=== PATIENT | female | born 1995 | race Caucasian/White ===

== ENCOUNTER 2021-02-19 14:02 | Emergency (ER) | payer OTHER, SELFPAY ==
--- NOTE | ~2021-02-19 | US_ITS ---
EXAMINATION: US PELVIS AND TRANSVAGINAL CLINICAL INFORMATION: Pressure, pain, history of cysts COMPARISON: None TECHNIQUE: Sonographic imaging of the pelvis was performed using transabdominal and transvaginal transducers. FINDINGS: The uterus has normal size and echotexture. No evidence of uterine leiomyoma. The endometrium is 0.3 cm AP. The cervix is normal, 3.3 cm in length. If excluding the cervix from measurement, the anteflexed uterus is 5 cm long, 3.6 cm AP and 5.5 cm transverse. The right ovary is 6.2 x 4.3 x 4.9 cm. A 2.9 x 4.5 x 4.9 cm hemorrhagic cyst is present within the ovary. Color Doppler images show presence of arterial and venous flow within the ovary. The left ovary is 4.3 x 2.2 x 2.1 cm. Normal-sized follicles. No left-sided adnexal mass. [id number] amount of free fluid in the pelvis contains internal echoes. US/US pelvic and transvaginal IMPRESSION: The constellation of findings suggest recent rupture of a right ovarian cyst. [id number] amount of fluid/blood is present in the cul-de-sac. 4.9 cm hemorrhagic cyst is present within the right ovary. No ovarian torsion. Follow-up is typically not needed/recommended for hemorrhagic cysts of <5 cm size (if asymptomatic).
[2021-02-19 14:07] VITALS: BP 113/59; PULSE 71; RESP 17; TEMP 36.4; O2SAT 99; BMI 23.0
--- NOTE | 2021-02-19 14:39 | ED_ITS ---
HPI - Female Genitourinary General Chief complaint: General Medical Stated complaint: General Medical Time Seen by Provider: 02/19/21 14:30 Source: patient Mode of arrival: ambulatory Limitations: no limitations History of Present Illness HPI Narrative: lingering stomach pain for a day then severe pain where she was hunched feels pressure and pelvic discomfort now but the severe pain resolved, prior history of ovarian cyst MD elicited complaint: pelvic pain and prolapse (felt a bump in her vaginal area) Onset (ago): day(s) (yesterday) Location of symptoms: pelvis Severity: moderate Female Urogenital Radiation: Non-Radiating Quality of pain: cramping and dull Consistency: intermittent Vaginal discharge: none Exacerbating factors: movement Relieving factors: none Associated symptoms: prolapse and other (dysuria) Treatment prior to arrival: none Sexual activity: Yes Patient : No Related Data Previous Rx's Medication Instructions Recorded clotrimazole-betamethasone 1 1 appl TOPICAL BID 14 Days #60 g 12/22/20 %-0.05 % topical cream hydroxyzine HCl 25 mg tablet 25 mg PO TID PRN 10 Days #30 tab 12/22/20 hydrocodone 5 mg-acetaminophen 325 1 tab PO Q6H PRN #10 tab 02/19/21 mg tablet ibuprofen 600 mg tablet 600 mg PO Q6H PRN #30 tab 02/19/21 ondansetron 4 mg disintegrating 4 mg PO Q8H PRN #20 tab 02/19/21 tablet Allergies Allergy/AdvReac Type Severity Reaction Status Date / Time amoxicillin [AMOXICILLIN] Allergy Intermediate HIVES Verified 02/19/21 14:07 Review of Systems Review of Systems: Constitutional : No Weight loss, No Fever, No Chills ENT/Mouth : No sore throat, No Rhinorrhea Eyes: No Swelling, No Redness Cardiovascular : No Chest Pain, No SOB, NoEdema Respiratory : No Cough, No Sputum, No Wheezing Gastrointestinal : no Nausea, no Vomiting, noDiarrhea, positive abdominal Pain, No Hematochezia, No Melena Genitourinary : pos Dysuria, No Urinary Frequency, No Hematuria, No Urgency, pos pelvic pain, pos rectal pressure Musculoskeletal : No joint pain, No Myalgias, No Joint Swelling Skin : No Skin Lesions, No rash Neuro : No Weakness, No Numbness, No Dizziness, No Headache Psych : No Anxiety/Panic, No Depression Heme/Lymph: No Bruising, No Lymphadenopathy Endocrine : No Polyuria, No Polydipsia All other systems reviewed and are negative. [facility] Past Medical History Attestation statement: The following information was validated with the patient. Surgical History Previous section Social History Social History Alcohol intake: current Alcohol intake frequency: holidays/special occasions only Patient Tobacco Use Status: Never used Tobacco Smoked in Last 30 Days: No Use of substances other than those prescribed or required for medical reasons: No Advance Directives: No Advance Directives Information Provided: No Patient : No Physical Exam Vital Signs: Vital Signs: Last Vital Signs Temp 98.6 F 02/19/21 14:42 Pulse 72 02/19/21 17:06 Resp 18 02/19/21 17:06 BP 114/58 L 02/19/21 17:06 Pulse Ox 100 02/19/21 17:06 Body Mass Index 23.0 Appearance: Alert. Oriented X3. No acute distress. Eyes: Pupils equal, round and reactive to light. ENT: Pharynx normal. Neck: Normal inspection. Neck supple. CVS: Normal heart rate and rhythm. Pulses normal. Respiratory: No respiratory distress. Breath sounds normal. Abdomen: Soft and mild suprapubic ttp no rebound or guarding : urethra seems more protuberant on initial external exam, with coughing very mild prolapse of rugated area ?bladder, no mass felt in vagina no CMT ttp Skin: Skin warm and dry. Normal skin color. Normal skin turgor. Extremities: No lower extremity edema. No calf ttp Neuro: Oriented X 3. No motor deficit. No sensory deficit. Course Course Course Narrative: + rupture of cyst which correlates with her history and exam non peritoneal abdominal exam, H/H stable Discharge Plan Discharge Clinical Impression: Ovarian cyst rupture Patient Disposition: Home, Self-Care Instructions: Ruptured Ovarian Cyst (ED) Additional Instructions: return to ED for any worsening symptoms or concerns do not take aspirin follow up with your OBGYN Prescriptions: New hydrocodone-acetaminophen 5-325 mg tablet 1 tab PO Q6H PRN (Reason: pain) Qty: 10 RF: 0 ibuprofen 600 mg tablet 600 mg PO Q6H PRN (Reason: pain) Qty: 30 RF: 0 ondansetron 4 mg tablet,disintegrating 4 mg PO Q8H PRN (Reason: nausea and vomiting) Qty: 20 RF: 0 No Action clotrimazole-betamethasone 1-0.05 % cream 1 appl topical BID 14 Days Qty: 60 RF: 0 hydroxyzine HCl 25 mg tablet 25 mg PO TID PRN (Reason: itching) 10 Days Qty: 30 RF: 0 Stand Alone Forms: Work/School Release
[2021-02-19 14:42] VITALS: BP 123/80; PULSE 80; RESP 15; TEMP 37; O2SAT 99
[2021-02-19 15:18] LABS: MANUAL DIFF FLAG NO
[2021-02-19 15:19] LABS: Basophils Percent Auto 0.3 % (0-2); Eosinophils Absolute Auto 0.1 X10*3/uL (0.0-0.4); Eosinophils Percent Auto 1.4 % (0-4); Hematocrit 39.1 % (37-47); Hemoglobin 13.3 g/dl (12.0-16.0); Imm Gran Abs Auto 0.01 X10*3/uL (0.00-0.03); Imm Gran Pct Auto 0.2 % (0.0-0.4); Lymphocytes Absolute Auto 2.2 X10*3/uL (1.2-4.9); Lymphocytes Percent Auto 37.3 % (20-40); Mean Corpuscular Hemoglobin 30.6 pg (27.0-33.0); Mean Corpuscular Volume 89.9 fL (80-98); Monocytes Absolute Auto 0.6 X10*3/uL (0.1-1.2); Neutrophils Absolute Auto 2.9 X10*3/uL (2.0-8.3); Neutrophils Percent Auto 49.8 % (45-73); Platelet Count 190 X10*3/uL (160-400); Red Blood Count 4.35 X10*6/uL (4.20-5.50); Red Cell Distribution Width 12.2 % (11.0-16.0); White Blood Count 5.8 X10*3/uL (4.8-10.8)
[2021-02-19 15:33] LABS: Glucose Urine UA NEG (NEG); Leukocyte Esterase Urine NEG (NEG); Nitrite Urine NEG (NEG); Specific Gravity - Urine >= 1.030 (1.005-1.025); Urine Blood NEG (NEG); Urine Ketones NEG (NEG); Urine Protein NEG (NEG-TRACE)
[2021-02-19 15:38] LABS: Appearance Urine CLEAR; Color Urine YELLOW
[2021-02-19 15:39] LABS: UPreg QC Valid YES; Urine Pregnancy NEGATIVE (NEGATIVE)
[2021-02-19 15:49] LABS: Alanine Aminotransferase 14 U/L (0-31); Albumin Level 4.9 g/dL (3.5-5.0); Alkaline Phosphatase 60 U/L (39-117); Anion Gap 15 (12-20); Aspartate Amino Transferase 21 U/L (5-31); Bilirubin Direct 0.2 mg/dL (0.0-0.5); Bilirubin Total 0.4 mg/dL (0.0-1.0); Blood Urea Nitrogen 16 mg/dL (9-16); Calcium 9.9 mg/dL (8.4-10.2); Carbon Dioxide 23 mmol/L (22-29); Chloride 106 mmol/L (96-108); Creatinine Clr Calc Pharmacy 96.8; Estimated Glomerular Filt Rate > 60; Glucose Random 84 mg/dL (60-115); Lipase 26 U/L (8-78); Potassium 4.6 mmol/L (3.3-5.1); Sodium 139 mmol/L (135-145); Total Protein 7.9 g/dL (6.5-8.0)
[2021-02-19 17:06] VITALS: BP 114/58; PULSE 72; RESP 18; O2SAT 100
== END 2021-02-19 17:27 | disposition home or self-care (01) ==
PROVIDERS: Emergency Provider Emergency Medicine; PCP Internal Medicine
DX: N83.201 Unspecified ovarian cyst, right side (principal); R10.2 Pelvic and perineal pain
CPT/HCPCS: 36415; 76830; 76856; 80048; 80076; 81003; 81025; 83690; 85025; 99284